=== PATIENT | female | born 1995 | race Caucasian/White ===

== ENCOUNTER 2022-12-13 11:14 | Outpatient (CLI) | payer OTHER | END 2022-12-14 16:58 | disposition home or self-care (01) | LOC: OBS/DEL 11:14 | PROVIDERS: ATTEND Specialist | DX: O47.1 False labor at or after 37 completed weeks of gestation (principal); O09.33 Supervision of pregnancy with insufficient antenatal care, third trimester; O23.33 Infections of other parts of urinary tract in pregnancy, third trimester; N39.0 Urinary tract infection, site not specified; Z3A.39 39 weeks gestation of pregnancy ==